=== PATIENT | female | born 1965 | race Hispanic/Latino ===

== ENCOUNTER 2022-08-01 17:03 | Inpatient (IN) | payer SELFPAY ==
[2022-08-01] MEDS ORDERED: Ondansetron PF 4 MG/2 ML Vial ONE (17:43)
[2022-08-01 17:56] LABS: #Eosinphils 0.2 thou/uL (0.0-0.7); #Lymphocytes 1.2 thou/uL (1.20-3.40); #Monocytes 0.5 thou/uL (0.11-0.59); #Neutrophils 5.8 thou/uL (1.40-6.50); %Basophils 0.3 % (0.0-1.0); %Eosinophils 2.1 % (0.0-10.0); %Monocytes 6.2 % (0.0-10.0); %Neutrophils 75.4 % (42.0-75.0); Hemoglobin 8.3 g/dL (12.0-16.0); Mean Corpuscular HGB CONC 29.9 g/dL (32.0-36.0); Mean Corpuscular Hemoglobin 20.3 pg (27.0-31.0); Mean Platelet Volume 10.9 fL (7.4-10.4); Platelet Count 268 thou/uL (130-400); Red Blood Cell (RBC) Count 4.06 mill/uL (4.20-5.40); White Blood Cell (WBC) Count 7.7 thou/uL (4.8-10.8)
[2022-08-01 17:58] LABS: Actual Bicarbonate (HCO3v) 27 mEq/L (22-28); Analyzer IN Cardio ER; Base Excess 2.3 mEq/L (-2.0 to +3.0); Calcium, Ionized (venous) 0.97 mmol/L (1.16-1.32); Chloride (VBG) 95 mmol/L (98-106); Hemoglobin (Hb) 9.2 g/dL (11.7-16.0); Potassium (VBG) 1.62 mmol/L (3.70-5.30); Sodium 132.8 mmol/L (133-146); pH (venous) 7.42 (7.32-7.43)
[2022-08-01 18:20] LABS: ALT (SGPT) 13 U/L (8-55); AST (SGOT) 12 U/L (5-34); Albumin 2.9 g/dL (3.5-5.0); Alkaline Phosphatase 98 U/L (40-110); Anion Gap 14 mmol/L (10-20); BUN (Urea Nitrogen) 5 mg/dL (9.8-20.1); Bilirubin, Total 0.4 mg/dL (0.2-1.2); Calc. Creatinine Clearance 0 mL/min (70-130); Calcium 7.9 mg/dL (7.8-10.44); Carbon Dioxide 27 mmol/L (22-29); Chloride 95 mmol/L (98-107); Estimated GFR 56; Globulin 3.3 g/dL (2.4-3.5); Lipase 48 U/L (8-78); Protein, Total 6.2 g/dL (6.0-8.3); Sodium 134 mmol/L (136-145)
[2022-08-01] MEDS ORDERED: Acetaminophen 500 MG TAB ONE (18:23)
[2022-08-01 18:24] LABS: Anisocytosis SLIGHT = 6-15 cells (100X) (0-5/hpf); Hypochromia SLIGHT = 6-15 cells (100X) (0-5/hpf); MDiff Complete? YES; Microcytosis SLIGHT = 6-15 cells (100X) (0-5/hpf); Ovalocytes SLIGHT = 2-5 cells (100X) (0-1/hpf); Platelet Morphology Comment Appears Adequate; Polychromasia MODERATE = 3-4 cells (100X) (0-2/hpf)
[2022-08-01 18:36] LABS: CKMB 2.5 ng/mL (0-6.6)
[2022-08-01] MEDS ORDERED: Aspirin Chewable 81 MG TAB ONE (18:37)
[2022-08-01 18:43] LABS: Glucose 555 mg/dL (70-105); Potassium 1.7 mmol/L (3.5-5.1)
[2022-08-01] MEDS ORDERED: Potassium Chloride 20 MEQ TAB ONE (19:36)
[2022-08-01] MEDS ORDERED: Potassium Chloride 20 MEQ/100 ML PREMIX BAG ONE (19:36)
[2022-08-01] MEDS ORDERED: Ondansetron ODT 4 MG TAB PO PRN (20:09)
[2022-08-01] MEDS ORDERED: Ondansetron PF 4 MG/2 ML Vial IVP PRN (20:09)
[2022-08-01 21:37] LABS: Troponin I 0.059 ng/mL (< 0.028)
[2022-08-01 21:59] VITALS: BMI 24.9
[2022-08-01] MEDS ORDERED: Lactated Ringer's 1,000 ML IV SCH (22:00)
[2022-08-01] MEDS ORDERED: Dextrose 50% Abboject 50 ML SYRINGE SLOW IVP PRN (23:12)
[2022-08-01] MEDS ORDERED: HumaLOG 300 UNITS/3 ML VIAL SC PRN (23:12)
[2022-08-01] MEDS ORDERED: Dextrose 5% in Water 1,000 ML IV PRN (23:12)
[2022-08-01] MEDS: Potassium Chloride 20 MEQ/100 ML PREMIX BAG IVPB SCH (23:19)
[2022-08-01] MEDS: Potassium Chloride 20 MEQ TAB PO SCH (23:19)
[2022-08-01 23:56] LABS: Anion Gap 14 mmol/L (10-20); BUN (Urea Nitrogen) 5 mg/dL (9.8-20.1); Calc. Creatinine Clearance 63 mL/min (70-130); Carbon Dioxide 26 mmol/L (22-29); Chloride 103 mmol/L (98-107); Sodium 141 mmol/L (136-145)
[2022-08-01 23:57] LABS: Calcium 7.7 mg/dL (7.8-10.44); Estimated GFR 69; Glucose 414 mg/dL (70-105)
[2022-08-02] MEDS: Potassium Chloride 20 MEQ TAB PO SCH (00:19)
[2022-08-02] MEDS: Potassium Chloride 20 MEQ/100 ML PREMIX BAG IVPB SCH (00:20)
[2022-08-02 00:45] LABS: Troponin I 0.066 ng/mL (< 0.028)
[2022-08-02] MEDS ORDERED: Potassium Chloride 20 MEQ TAB PO SCH ×4 (00:45→21:15)
[2022-08-02] MEDS ORDERED: Potassium Chloride 40 MEQ in Sodium Chloride 0.45% 1,000 ML IV SCH (00:45)
[2022-08-02] MEDS: Potassium Chloride 40 MEQ in Sodium Chloride 0.45% 1,000 ML IV SCH ×2 (01:21→09:17)
[2022-08-02 02:18] LABS: Magnesium 1.6 mg/dL (1.6-2.6)
[2022-08-02 02:26] LABS: Phosphorus Less than 1.0 mg/dL (2.3-4.7)
[2022-08-02] MEDS: Potassium Chloride 20 MEQ in Premix Bag 1 BAG IVPB SCH ×2 (02:39→06:12)
[2022-08-02] MEDS ORDERED: Magnesium 2 GM/50 ML(in water) 2 GM in Premix Bag 1 BAG IVPB SCH (03:00)
[2022-08-02 04:58] LABS: #Eosinphils 0.3 thou/uL (0.0-0.7); #Lymphocytes 2.2 thou/uL (1.20-3.40); #Monocytes 0.5 thou/uL (0.11-0.59); #Neutrophils 4.3 thou/uL (1.40-6.50); %Basophils 0.2 % (0.0-1.0); %Eosinophils 4.5 % (0.0-10.0); %Lymphocytes 29.7 % (21.0-51.0); %Neutrophils 58.5 % (42.0-75.0); Hemoglobin 7.5 g/dL (12.0-16.0); Mean Corpuscular HGB CONC 30.5 g/dL (32.0-36.0); Mean Corpuscular Hemoglobin 20.4 pg (27.0-31.0); Mean Platelet Volume 11.2 fL (7.4-10.4); Platelet Count 222 thou/uL (130-400); RBC Distribution Width 15.6 % (11.5-14.5); Red Blood Cell (RBC) Count 3.69 mill/uL (4.20-5.40); White Blood Cell (WBC) Count 7.4 thou/uL (4.8-10.8)
[2022-08-02 05:00] LABS: Hemoglobin A1c 13.3 % (4.0-6.0)
[2022-08-02 05:28] LABS: ALT (SGPT) 13 U/L (8-55); AST (SGOT) 16 U/L (5-34); Albumin 2.7 g/dL (3.5-5.0); Alkaline Phosphatase 91 U/L (40-110); Anion Gap 13 mmol/L (10-20); BUN (Urea Nitrogen) Less than 4 mg/dL (9.8-20.1); Bilirubin, Total 0.3 mg/dL (0.2-1.2); Calc. Creatinine Clearance 76 mL/min (70-130); Calcium 7.5 mg/dL (7.8-10.44); Carbon Dioxide 24 mmol/L (22-29); Cardiac Risk 6.6 (Less than 4.5); Chloride 107 mmol/L (98-107); Cholesterol 146 mg/dl (< 200 Desired); Estimated GFR 87; Globulin 3.1 g/dL (2.4-3.5); Glucose 217 mg/dL (70-105); HDL Cholesterol 22 mg/dL (>60 Neg Risk); LDL Cholesterol, Calculated 60 mg/dL; Protein, Total 5.8 g/dL (6.0-8.3); Sodium 141 mmol/L (136-145); Triglycerides 319 mg/dL (Less than 150)
[2022-08-02 05:30] LABS: Potassium 2.7 mmol/L (3.5-5.1)
[2022-08-02] MEDS: Enoxaparin Sodium 40 MG/0.4 ML SYRINGE SC SCH (08:42)
[2022-08-02] MEDS: Ferrous Sulfate 325 MG TAB PO SCH (08:42)
[2022-08-02] MEDS: Multivitamin W/ Minerals 1 TAB PO SCH (08:43)
[2022-08-02] MEDS: Potassium Phosphate 15 MMOL in Sodium Chloride 0.9% 250 ML 250 ML IVPB SCH ×2 (08:43→10:32)
[2022-08-02] MEDS: metFORMIN 500 MG TAB PO SCH ×2 (08:43→17:33)
[2022-08-02] MEDS ORDERED: PHOS-NAK 1 PKT PACK PO SCH (09:00)
[2022-08-02 09:35] LABS: Anion Gap 12 mmol/L (10-20); BUN (Urea Nitrogen) 4 mg/dL (9.8-20.1); Calc. Creatinine Clearance 71 mL/min (70-130); Calcium 7.3 mg/dL (7.8-10.44); Carbon Dioxide 23 mmol/L (22-29); Chloride 107 mmol/L (98-107); Estimated GFR 81; Glucose 361 mg/dL (70-105); Sodium 139 mmol/L (136-145)
[2022-08-02 09:36] LABS: Iron 14 ug/dL (50-170); Iron Binding Capacity, Total 301 mcg/dL (265-497); Transferrin, Serum 241 mg/dL (180-382)
[2022-08-02] MEDS ORDERED: Potassium Chloride 20 MEQ in Premix Bag 1 BAG IVPB SCH (09:45)
[2022-08-02] MEDS ORDERED: Polyethylene Glycol 3350 17 GM Packet PO PRN (10:06)
[2022-08-02] MEDS: Fluticasone Propionate Nasal Spray 16 gm Bottle NASAL SCH (10:38)
[2022-08-02] MEDS: HumaLOG 300 UNITS/3 ML VIAL SC PRN ×2 (12:18→17:34)
[2022-08-02 18:39] LABS: Anion Gap 14 mmol/L (10-20); BUN (Urea Nitrogen) 6 mg/dL (9.8-20.1); Calc. Creatinine Clearance 52 mL/min (70-130); Calcium 7.7 mg/dL (7.8-10.44); Carbon Dioxide 23 mmol/L (22-29); Chloride 107 mmol/L (98-107); Estimated GFR 55; Glucose 540 mg/dL (70-105); Magnesium 1.8 mg/dL (1.6-2.6); Potassium 3.5 mmol/L (3.5-5.1); Sodium 140 mmol/L (136-145)
[2022-08-02 19:02] LABS: Phosphorus 2.2 mg/dL (2.3-4.7)
[2022-08-02] MEDS ORDERED: NPH, Human Insulin Isophane 300 UNIT/3 ML VIAL SC SCH (21:00)
[2022-08-03 04:29] LABS: Mean Corpuscular HGB CONC 29.2 g/dL (32.0-36.0)
[2022-08-03 04:30] LABS: #Eosinphils 0.6 thou/uL (0.0-0.7); #Lymphocytes 2.3 thou/uL (1.20-3.40); #Monocytes 0.6 thou/uL (0.11-0.59); #Neutrophils 4.5 thou/uL (1.40-6.50); %Basophils 0.6 % (0.0-1.0); %Lymphocytes 28.7 % (21.0-51.0); %Monocytes 7.8 % (0.0-10.0); %Neutrophils 55.9 % (42.0-75.0); Hemoglobin 7.6 g/dL (12.0-16.0); Mean Corpuscular Hemoglobin 19.9 pg (27.0-31.0); Mean Corpuscular Volume 68.1 fl (78.0-98.0); Mean Platelet Volume 10.9 fL (7.4-10.4); Platelet Count 237 thou/uL (130-400); RBC Distribution Width 16.3 % (11.5-14.5); Red Blood Cell (RBC) Count 3.81 mill/uL (4.20-5.40); White Blood Cell (WBC) Count 8.1 thou/uL (4.8-10.8)
[2022-08-03 04:48] LABS: Phosphorus 2.1 mg/dL (2.3-4.7)
[2022-08-03 05:07] LABS: ALT (SGPT) 14 U/L (8-55); AST (SGOT) 14 U/L (5-34); Albumin 2.8 g/dL (3.5-5.0); Alkaline Phosphatase 102 U/L (40-110); Anion Gap 14 mmol/L (10-20); BUN (Urea Nitrogen) 6 mg/dL (9.8-20.1); Bilirubin, Total 0.3 mg/dL (0.2-1.2); Calc. Creatinine Clearance 62 mL/min (70-130); Carbon Dioxide 24 mmol/L (22-29); Chloride 106 mmol/L (98-107); Estimated GFR 68; Globulin 3.1 g/dL (2.4-3.5); Glucose 340 mg/dL (70-105); Magnesium 1.8 mg/dL (1.6-2.6); Potassium 3.7 mmol/L (3.5-5.1); Protein, Total 5.9 g/dL (6.0-8.3); Sodium 140 mmol/L (136-145)
[2022-08-03] MEDS ORDERED: Potassium Chloride 20 MEQ TAB PO SCH (08:00)
[2022-08-03] MEDS ORDERED: HumaLOG 300 UNITS/3 ML VIAL SC PRN (08:36)
[2022-08-03] MEDS ORDERED: metFORMIN 500 MG TAB PO SCH (08:45)
[2022-08-03] MEDS: metFORMIN 500 MG TAB PO SCH ×2 (08:53→16:37)
[2022-08-03] MEDS: Enoxaparin Sodium 40 MG/0.4 ML SYRINGE SC SCH (09:00)
[2022-08-03] MEDS: Fluticasone Propionate Nasal Spray 16 gm Bottle NASAL SCH (09:00)
[2022-08-03] MEDS: Multivitamin W/ Minerals 1 TAB PO SCH (09:00)
[2022-08-03] MEDS ORDERED: Potassium Phosphate 9 MMOL in Sodium Chloride 0.9% 100 ML IVPB SCH (10:00)
[2022-08-03] MEDS ORDERED: Gabapentin 100 MG CAP PO SCH (10:45)
[2022-08-03] MEDS: HumaLOG 300 UNITS/3 ML VIAL SC PRN ×2 (11:35→18:02)
[2022-08-03] MEDS ORDERED: Fluticasone Propionate Nasal Spray 16 gm Bottle NASAL PRN (17:44)
[2022-08-03] MEDS: Acetaminophen 500 MG TAB PO PRN (20:26)
[2022-08-04 04:21] LABS: #Basophils 0.1 thou/uL (0.0-0.2); #Eosinphils 0.3 thou/uL (0.0-0.7); #Monocytes 0.5 thou/uL (0.11-0.59); #Neutrophils 3.5 thou/uL (1.40-6.50); %Eosinophils 5.4 % (0.0-10.0); %Lymphocytes 30.9 % (21.0-51.0); %Neutrophils 54.8 % (42.0-75.0); Hemoglobin 7.2 g/dL (12.0-16.0); Mean Corpuscular HGB CONC 30.1 g/dL (32.0-36.0); Mean Corpuscular Hemoglobin 20.6 pg (27.0-31.0); Mean Corpuscular Volume 68.5 fl (78.0-98.0); Mean Platelet Volume 11.1 fL (7.4-10.4); Platelet Count 202 thou/uL (130-400); RBC Distribution Width 16.4 % (11.5-14.5); Red Blood Cell (RBC) Count 3.48 mill/uL (4.20-5.40); White Blood Cell (WBC) Count 6.4 thou/uL (4.8-10.8)
[2022-08-04 04:36] LABS: Anion Gap 9 mmol/L (10-20); BUN (Urea Nitrogen) 7 mg/dL (9.8-20.1); Calc. Creatinine Clearance 60 mL/min (70-130); Calcium 8.1 mg/dL (7.8-10.44); Carbon Dioxide 27 mmol/L (22-29); Chloride 107 mmol/L (98-107); Estimated GFR 66; Glucose 297 mg/dL (70-105); Magnesium 1.7 mg/dL (1.6-2.6); Phosphorus 3.1 mg/dL (2.3-4.7); Potassium 3.5 mmol/L (3.5-5.1); Sodium 139 mmol/L (136-145)
[2022-08-04] MEDS ORDERED: Iron, Sodium Ferric Gluconate 250 MG in Sodium Chloride 0.9% 250 ML 250 ML IVPB SCH (08:07)
[2022-08-04] MEDS ORDERED: Gabapentin 100 MG CAP PO SCH (09:00)
[2022-08-04] MEDS: Multivitamin W/ Minerals 1 TAB PO SCH (09:09)
[2022-08-04] MEDS: Ferrous Sulfate 325 MG TAB PO SCH (09:09)
[2022-08-04] MEDS: Enoxaparin Sodium 40 MG/0.4 ML SYRINGE SC SCH (09:09)
[2022-08-04] MEDS: metFORMIN 500 MG TAB PO SCH ×2 (09:09→16:27)
[2022-08-04] MEDS: Acetaminophen 500 MG TAB PO PRN (11:29)
[2022-08-04] MEDS: HumaLOG 300 UNITS/3 ML VIAL SC PRN ×2 (11:30→16:27)
[2022-08-04 16:15] VITALS: BP 82/58; TEMP 97.8
[2022-08-04] MEDS ORDERED: FLU VACC QS2022-23(6MOS UP)/PF 60 MCG/0.5 ML SYRINGE IM ONE (23:30)
== END 2022-08-04 17:25 | disposition home or self-care (01) | DRG 637 ==
LOC: ERS 17:03 → 2NO 19:04
PROVIDERS: ADMIT Student in an Organized Health Care Education/Training Program; ATTEND Student in an Organized Health Care Education/Training Program
DX: E11.65 Type 2 diabetes mellitus with hyperglycemia (principal); E43 Unspecified severe protein-calorie malnutrition; E87.6 Hypokalemia; K21.9 Gastro-esophageal reflux disease without esophagitis; E11.40 Type 2 diabetes mellitus with diabetic neuropathy, unspecified; E78.5 Hyperlipidemia, unspecified; I10 Essential (primary) hypertension; F17.210 Nicotine dependence, cigarettes, uncomplicated; E87.5 Hyperkalemia; J30.2 Other seasonal allergic rhinitis; E83.42 Hypomagnesemia; E83.39 Other disorders of phosphorus metabolism; F32.A Depression, unspecified; D50.9 Iron deficiency anemia, unspecified; R01.1 Cardiac murmur, unspecified; I35.0 Nonrheumatic aortic (valve) stenosis; Z98.51 Tubal ligation status; Z68.24 Body mass index [BMI] 24.0-24.9, adult; Z79.4 Long term (current) use of insulin; Z91.190 Patient's noncompliance with other medical treatment and regimen due to financial hardship; Z79.899 Other long term (current) drug therapy
CPT/HCPCS: 36415; 36416; 71045; 80048; 80053; 80061; 82010; 82553; 82728; 82805; 83036; 83540; 83550; 83690; 83735; 84100; 84443; 84466; 84484; 85025; 93005; 93306; 96361; 96365; J1650; J1815; J2405; J2916; J3475; J3480; J3490; J7050; J7120; U0003; U0005

== ENCOUNTER 2025-06-28 05:52 | Inpatient (IN) | payer SELFPAY ==
[2025-06-28 06:54] LABS: #Basophils 0.03 10x3/uL (0.0-0.2); #Eosinophils Less than 0.03 10x3/uL (0.0-0.7); #Monocytes 0.72 10x3/uL (0.11-0.59); #Neutrophils 16.23 10x3/uL (1.40-6.50); %Basophils 0.2 % (0.0-1.0); %Eosinophils 0.1 % (0.0-10.0); %Lymphocytes 7.6 % (21.0-51.0); %Monocytes 3.9 % (0.0-10.0); %Neutrophils 87.1 % (42.0-75.0); Hematocrit 40.8 % (36.0-47.0); Hemoglobin 12.6 g/dL (12.0-16.0); Mean Corpuscular Hemoglobin 27.7 pg (27.0-31.0); Mean Corpuscular Volume 89.7 fL (78.0-98.0); Platelet Count 201 10x3/uL (130-400); Red Blood Cell (RBC) Count 4.55 mill/uL (4.20-5.40); White Blood Cell (WBC) Count 18.61 10x3/uL (4.8-10.8)
[2025-06-28 06:59] LABS: Base Excess -14.3 mEq/L (-2.0 to +3.0); Calcium, Ionized (venous) 1.07 mmol/L (1.16-1.32); Chloride (VBG) 92 mmol/L (98-106); Hematocrit-VBG 43 % (36.0-47.0); Hemoglobin (Hb) 14.5 g/dL (11.7-16.0); Potassium (VBG) 4.79 mmol/L (3.70-5.30); Sodium 128 mmol/L (133-146)
[2025-06-28] MEDS ORDERED: cefTRIAXone (ROCEPHIN) 2 GM VIAL ONE (07:14)
[2025-06-28] MEDS ORDERED: Azithromycin 500 MG VIAL ONE (07:14)
[2025-06-28] MEDS ORDERED: Magnesium 2 GM/50 ML BAG (IN WATER) ONE (07:14)
[2025-06-28 07:37] LABS: ALT (SGPT) 71 U/L (Less than 34); AST (SGOT) 134 U/L (11-34); Albumin 3.0 g/dL (3.1-4.5); Alkaline Phosphatase 104 U/L (40-110); Anion Gap 27 mmol/L (10-20); BUN (Urea Nitrogen) 76 mg/dL (9.8-20.1); Bilirubin, Total 0.8 mg/dL (0.3-1.2); Calc. Creatinine Clearance 0 mL/min (70-130); Calcium 8.6 mg/dL (7.8-10.44); Carbon Dioxide 11 mmol/L (23-31); Chloride 94 mmol/L (98-107); Globulin 4.1 g/dL (2.4-3.5); Glucose 751 mg/dL (80-115); Lipase 53 U/L (8-78); Potassium 5.0 mmol/L (3.5-5.1); Sodium 127 mmol/L (136-145)
[2025-06-28] MEDS ORDERED: Furosemide 40 MG (4 mL) VIAL ONE (07:53)
[2025-06-28] MEDS ORDERED: INSULIN REGULAR IN 0.9 % NACL 100 ML ONE (07:54)
[2025-06-28] MEDS ORDERED: NOREPINEPHRINE 8 MG/250 ML-D5W 250 ML ONE (08:04)
[2025-06-28 08:08] LABS: INR-International Normal Ratio 1.3; PTT 32.3 sec (22.9-36.1); Prothrombin Time 15.9 sec (12.0-14.7)
[2025-06-28] MEDS ORDERED: Etomidate 40 MG (20 mL) VIAL ONE (08:11)
[2025-06-28] MEDS ORDERED: Rocuronium Bromide 10 MG/ML (10ML VIAL) ONE (08:11)
[2025-06-28 09:37] LABS: Osmolality, Serum 318 mOsm/kg (280-301)
[2025-06-28] MEDS ORDERED: Aspirin 81 mg Enteric Coated Tablet ONE (10:07)
[2025-06-28] MEDS ORDERED: Enoxaparin 80 MG (0.8 mL) SYRINGE ONE (10:08)
[2025-06-28] MEDS ORDERED: Aspirin Chewable 81 MG TAB ONE ×2 (10:10→10:24)
[2025-06-28] MEDS ORDERED: Ondansetron PF 4 MG/2 ML Vial IVP PRN (10:42)
[2025-06-28] MEDS ORDERED: Electrolyte Replacement Protocol 1 EACH IVPB SCH (10:46)
[2025-06-28] MEDS ORDERED: Dextrose 50% Abboject 50 ML SYRINGE SLOW IVP PRN (10:46)
[2025-06-28] MEDS ORDERED: NS 0.9% w/ 20 MEQ KCL 1,000 ML IV PRN (10:46)
[2025-06-28 10:59] LABS: Analyzer IN Cardio ER; Base Excess (BEa) -17.4 mEq/L (-2.0 to +3.0); CO2 Tension 35.6 mmHg (35.0-45.0); Calcium, Ionized (arterial) 1.12 mmol/L (1.12-1.30); Hematocrit-ABG 42 % (36.0-47.0); Hemoglobin (Hb) 14.4 g/dL (12.0-16.0); O2 Tension (PaO2), arterial 214.7 mmHg (> 80.0); Potassium - ABG Lab 4.92 mmol/L (3.70-5.30)
[2025-06-28] MEDS ORDERED: Sodium Bicarb 50 MEQ/50 ML Abboject 8.4% SYRINGE ONE (11:08)
[2025-06-28 11:50] LABS: Anion Gap 24 mmol/L (10-20); BUN (Urea Nitrogen) 72 mg/dL (9.8-20.1); Calc. Creatinine Clearance 0 mL/min (70-130); Calcium 8.0 mg/dL (7.8-10.44); Carbon Dioxide 11 mmol/L (23-31); Chloride 99 mmol/L (98-107); Glucose 723 mg/dL (80-115); Potassium 5.0 mmol/L (3.5-5.1); Sodium 129 mmol/L (136-145)
[2025-06-28] MEDS ORDERED: DISCONTINUE PREVIOUS NARCOTIC PAIN MEDICATIONS AND BENZODIAZEPINES FS SCH (12:15)
[2025-06-28] MEDS ORDERED: Propofol BOLUS 1,000 MG/100 ML VIAL IV PRN (12:15)
[2025-06-28] MEDS ORDERED: Fentanyl BOLUS 100 ML IVPB PRN (12:15)
[2025-06-28 12:36] LABS: Actual Bicarbonate (HCO3a) 15.6 mEq/L (22-28); Base Excess (BEa) -14.2 mEq/L (-2.0 to +3.0); CO2 Tension 52.2 mmHg (35.0-45.0); Calcium, Ionized (arterial) 1.03 mmol/L (1.12-1.30); Hematocrit-ABG 39 % (36.0-47.0); Hemoglobin (Hb) 13.2 g/dL (12.0-16.0); O2 Tension (PaO2), arterial 67.3 mmHg (> 80.0); Potassium - ABG Lab 4.37 mmol/L (3.70-5.30)
[2025-06-28 12:40] LABS: pH, Arterial 7.093 (7.35-7.45)
[2025-06-28 12:41] LABS: ALV-art Gradient 152.650 mmHg (0-20); Puncture Site Right Brachial art
[2025-06-28] MEDS: INSULIN REGULAR IN 0.9 % NACL 100 ML IVPB SCH (12:53)
[2025-06-28] MEDS ORDERED: NOREPINEPHRINE 8 MG/250 ML-D5W 250 ML IVPB SCH (13:00)
[2025-06-28 13:37] LABS: Glucose 595 mg/dL (80-115)
[2025-06-28 14:35] LABS: Glucose 541 mg/dL (80-115)
[2025-06-28 16:29] LABS: Anion Gap 15 mmol/L (10-20); BUN (Urea Nitrogen) 65 mg/dL (9.8-20.1); Calc. Creatinine Clearance 35 mL/min (70-130); Calcium 7.2 mg/dL (7.8-10.44); Carbon Dioxide 17 mmol/L (23-31); Chloride 107 mmol/L (98-107); Glucose 507 mg/dL (80-115); Potassium 4.3 mmol/L (3.5-5.1); Sodium 135 mmol/L (136-145)
[2025-06-28] MEDS: NS 0.9% w/ 20 MEQ KCL 1,000 ML IV PRN (16:33)
[2025-06-28] MEDS: Mupirocin 1 GM TUBE TP SCH (20:19)
[2025-06-28] MEDS: Heparin 5,000 UNITS/ML VIAL SC SCH (20:19)
[2025-06-28] MEDS: Famotidine/PF 20 mg/2ml Vial SLOW IVP SCH (20:20)
[2025-06-28 20:54] LABS: Anion Gap 17 mmol/L (10-20); BUN (Urea Nitrogen) 63 mg/dL (9.8-20.1); Calc. Creatinine Clearance 31 mL/min (70-130); Calcium 7.0 mg/dL (7.8-10.44); Carbon Dioxide 16 mmol/L (23-31); Chloride 110 mmol/L (98-107); Glucose 352 mg/dL (80-115); Potassium 5.1 mmol/L (3.5-5.1); Sodium 138 mmol/L (136-145)
[2025-06-29 05:23] LABS: Anion Gap 15 mmol/L (10-20); BUN (Urea Nitrogen) 63 mg/dL (9.8-20.1); Calc. Creatinine Clearance 32 mL/min (70-130); Carbon Dioxide 17 mmol/L (23-31); Chloride 112 mmol/L (98-107); Potassium 4.6 mmol/L (3.5-5.1); Sodium 139 mmol/L (136-145)
[2025-06-29 05:24] LABS: ALT (SGPT) 416 U/L (Less than 34); AST (SGOT) 655 U/L (11-34); Albumin 1.8 g/dL (3.1-4.5); Alkaline Phosphatase 68 U/L (40-110); Bilirubin, Total 0.3 mg/dL (0.3-1.2); Calcium 6.9 mg/dL (7.8-10.44); Globulin 3.2 g/dL (2.4-3.5); Glucose 223 mg/dL (80-115); Magnesium 2.0 mg/dL (1.6-2.6)
[2025-06-29 05:30] VITALS: BMI 27.0
[2025-06-29] MEDS: D5 1/2 NS w/20 mEq KCL 1,000 ML IV PRN (05:44)
[2025-06-29 07:32] LABS: Base Excess (BEa) -7.7 mEq/L (-2.0 to +3.0); Calcium, Ionized (arterial) 1.03 mmol/L (1.12-1.30); Hematocrit-ABG 51 % (36.0-47.0); Hemoglobin (Hb) 17.3 g/dL (12.0-16.0); O2 Tension (PaO2), arterial 147.6 mmHg (> 80.0); Potassium - ABG Lab 4.60 mmol/L (3.70-5.30); pH, Arterial 7.398 (7.35-7.45)
[2025-06-29 07:34] LABS: CO2 Tension 24.5 mmHg (35.0-45.0)
[2025-06-29 07:35] LABS: ALV-art Gradient 106.975 mmHg (0-20); Actual Bicarbonate (HCO3a) 14.8 mEq/L (22-28); Puncture Site Left Radial artery
[2025-06-29] MEDS ORDERED: [UNRECOGNIZED DRUG - OTHER] IVPB SCH (08:00)
[2025-06-29] MEDS ORDERED: ADMIXTURE FEE CHEMO IVPB SCH (08:00)
[2025-06-29] MEDS ORDERED: AZITHROMYCIN IVPB SCH (08:00)
[2025-06-29] MEDS ORDERED: Glucagon 1 MG/ML KIT IM PRN (08:24)
[2025-06-29 08:28] LABS: #Basophils Less than 0.03 10x3/uL (0.0-0.2); #Eosinophils Less than 0.03 10x3/uL (0.0-0.7); #Monocytes 0.63 10x3/uL (0.11-0.59); #Neutrophils 10.57 10x3/uL (1.40-6.50); %Basophils 0.1 % (0.0-1.0); %Eosinophils 0.0 % (0.0-10.0); %Lymphocytes 10.1 % (21.0-51.0); %Monocytes 5.0 % (0.0-10.0); %Neutrophils 84.1 % (42.0-75.0); Hematocrit 33.7 % (36.0-47.0); Hemoglobin 10.9 g/dL (12.0-16.0); Mean Corpuscular Hemoglobin 28.5 pg (27.0-31.0); Mean Corpuscular Volume 88.2 fL (78.0-98.0); Platelet Count 154 10x3/uL (130-400); Red Blood Cell (RBC) Count 3.82 mill/uL (4.20-5.40); White Blood Cell (WBC) Count 12.57 10x3/uL (4.8-10.8)
[2025-06-29] MEDS: cefTRIAXone\\ROCEPHIN 1 GM in Sodium Chloride 0.9% 100 ML IVPB SCH (08:50)
[2025-06-29] MEDS: Azithromycin 500 MG in Sodium Chloride 0.9% 250 ML 250 ML IVPB SCH (08:55)
[2025-06-29] MEDS: Magnesium 2 GM/50 ML(in water) 2 GM in Premix 1 BAG IVPB SCH ×2 (08:55→20:20)
[2025-06-29 09:16] LABS: Glucose, Urine (Dipstick) 50 mg/dL (Negative); Leukocyte 500 Leu/uL (Negative); Protein, Urine (Dipstick) 70 mg/dL (Neg-Trace); RBC/HPF 0-3 HPF (0-3); Specific Gravity, Urine 1.021 (1.002-1.036); WBC/HPF Greater than 50 HPF (0-3)
[2025-06-29 09:18] LABS: Bacteria/HPF 1+ HPF (None Seen)
[2025-06-29] MEDS: Insulin Glargine 30 UNITS/0.3 ML VIAL SC SCH (11:58)
[2025-06-29] MEDS: Acetaminophen 325 MG TAB PO PRN (11:58)
[2025-06-29 13:51] LABS: Actual Bicarbonate (HCO3v) 13.5 mEq/L (22-28)
[2025-06-29 13:54] LABS: Actual Bicarbonate (HCO3a) 11.1 mEq/L (22-28); pH, Arterial 7.112 (7.35-7.45)
[2025-06-29 13:55] VITALS: BMI 27.0
[2025-06-29] MEDS: Furosemide 40 MG (4 mL) VIAL SLOW IVP SCH (14:49)
[2025-06-29] MEDS: Furosemide 40 MG (4 mL) VIAL ONE (14:50)
[2025-06-29 21:53] LABS: ALT (SGPT) 1533 U/L (Less than 34); AST (SGOT) 2869 U/L (11-34); Albumin 1.9 g/dL (3.1-4.5); Alkaline Phosphatase 77 U/L (40-110); Anion Gap 21 mmol/L (10-20); BUN (Urea Nitrogen) 69 mg/dL (9.8-20.1); Bilirubin, Total 0.8 mg/dL (0.3-1.2); Calc. Creatinine Clearance 26 mL/min (70-130); Calcium 7.4 mg/dL (7.8-10.44); Carbon Dioxide 11 mmol/L (23-31); Chloride 108 mmol/L (98-107); Globulin 3.3 g/dL (2.4-3.5); Glucose 274 mg/dL (80-115); Magnesium 7.0 mg/dL (1.6-2.6); Potassium 6.1 mmol/L (3.5-5.1); Sodium 134 mmol/L (136-145)
[2025-06-29 22:35] LABS: ALT (SGPT) 1544 U/L (Less than 34); AST (SGOT) 2890 U/L (11-34); Albumin 1.9 g/dL (3.1-4.5); Alkaline Phosphatase 79 U/L (40-110); Anion Gap 22 mmol/L (10-20); BUN (Urea Nitrogen) 70 mg/dL (9.8-20.1); Bilirubin, Total 0.8 mg/dL (0.3-1.2); Calc. Creatinine Clearance 26 mL/min (70-130); Calcium 7.5 mg/dL (7.8-10.44); Carbon Dioxide 10 mmol/L (23-31); Chloride 109 mmol/L (98-107); Globulin 3.3 g/dL (2.4-3.5); Glucose 264 mg/dL (80-115); Magnesium 3.3 mg/dL (1.6-2.6); Potassium 6.2 mmol/L (3.5-5.1); Sodium 135 mmol/L (136-145)
[2025-06-29] MEDS: LOKELMA 10 GM PACKET PO SCH (22:45)
[2025-06-29] MEDS: Sodium Bicarb 50 MEQ/50 ML Abboject 8.4% SYRINGE IVP SCH ×2 (22:48→23:07)
[2025-06-30] MEDS: Norepinephrine 8 MG/0.9% NS 250 ML IVPB SCH (00:06)
[2025-06-30] MEDS: Vasopressin In 0.9 % NaCl 100 ML IV SCH (01:18)
[2025-06-30 01:51] LABS: Anion Gap 23 mmol/L (10-20); BUN (Urea Nitrogen) 68 mg/dL (9.8-20.1); Calc. Creatinine Clearance 25 mL/min (70-130); Calcium 11.1 mg/dL (7.8-10.44); Carbon Dioxide 9 mmol/L (23-31); Chloride 109 mmol/L (98-107); Glucose 231 mg/dL (80-115); Potassium 5.7 mmol/L (3.5-5.1); Sodium 135 mmol/L (136-145)
[2025-06-30] MEDS: Sodium Bicarb 50 MEQ/50 ML Abboject 8.4% SYRINGE IVP SCH ×4 (01:59→13:39)
[2025-06-30] MEDS: Albumin 25% 25 GM (100 mL) BOT IVPB SCH ×2 (01:59→06:02)
[2025-06-30] MEDS: LOKELMA 10 GM PACKET PO SCH (02:00)
[2025-06-30 03:46] LABS: Hematocrit 34.2 % (36.0-47.0); Hemoglobin 10.6 g/dL (12.0-16.0); Mean Corpuscular Hemoglobin 28.6 pg (27.0-31.0); Mean Corpuscular Volume 92.2 fL (78.0-98.0); Platelet Count 218 10x3/uL (130-400); Red Blood Cell (RBC) Count 3.71 mill/uL (4.20-5.40); White Blood Cell (WBC) Count 23.39 10x3/uL (4.8-10.8)
[2025-06-30 04:05] LABS: ALT (SGPT) 2101 U/L (Less than 34); AST (SGOT) Greater than 4001 U/L (11-34); Albumin 2.4 g/dL (3.1-4.5); Alkaline Phosphatase 71 U/L (40-110); Anion Gap 25 mmol/L (10-20); BUN (Urea Nitrogen) 72 mg/dL (9.8-20.1); Bilirubin, Total 1.4 mg/dL (0.3-1.2); Calc. Creatinine Clearance 24 mL/min (70-130); Calcium 8.1 mg/dL (7.8-10.44); Carbon Dioxide 12 mmol/L (23-31); Chloride 107 mmol/L (98-107); Globulin 2.8 g/dL (2.4-3.5); Glucose 205 mg/dL (80-115); Potassium 5.5 mmol/L (3.5-5.1); Sodium 138 mmol/L (136-145)
[2025-06-30 04:18] LABS: Nucleated RBC (Manual Ct) 3 % (0); Platelet Adequacy Comment Platelets Normal; Polychromasia SLIGHT = 2-3 cells HPF (0-2)
[2025-06-30 07:17] LABS: Anion Gap 29 mmol/L (10-20); BUN (Urea Nitrogen) 71 mg/dL (9.8-20.1); Calc. Creatinine Clearance 24 mL/min (70-130); Calcium 7.7 mg/dL (7.8-10.44); Carbon Dioxide 13 mmol/L (23-31); Chloride 103 mmol/L (98-107); Glucose 220 mg/dL (80-115); Potassium 5.5 mmol/L (3.5-5.1); Sodium 139 mmol/L (136-145)
[2025-06-30 08:56] LABS: Hep B Core Total Index 0.07 S/CO (0-0.79); Hep C Index 0.06 S/CO (0-0.79)
[2025-06-30 09:15] LABS: HBSAB Concentration Less than 8.00 mIU/mL
[2025-06-30 09:16] LABS: Hep B Core Total Ab NONREACTIVE (NonReactive); Hep C IgG Ab NONREACTIVE S/CO (NonReactive)
[2025-06-30 09:46] LABS: Hep B Surf Ag NONREACTIVE S/CO (NonReactive)
[2025-06-30 10:17] VITALS: BP 93/55
[2025-06-30] MEDS: Calcium Chloride 1 GM/10 ML Abboject SYRINGE IVP SCH (10:41)
[2025-06-30 10:51] LABS: Base Excess (BEa) -9.3 mEq/L (-2.0 to +3.0); Calcium, Ionized (arterial) 1.22 mmol/L (1.12-1.30); Hematocrit-ABG 36 % (36.0-47.0); Hemoglobin (Hb) 12.1 g/dL (12.0-16.0); O2 Tension (PaO2), arterial 406.6 mmHg (> 80.0); Potassium - ABG Lab 5.12 mmol/L (3.70-5.30); pH, Arterial 7.386 (7.35-7.45)
[2025-06-30 11:53] VITALS: TEMP 101
[2025-06-30] MEDS: Hydrocortisone Sod Succ/PF 100 mg/2 ml Vial IVP SCH (12:32)
[2025-06-30] MEDS: Sodium Bicarb 50 MEQ/50 ML Abboject 8.4% SYRINGE ONE (12:37)
[2025-06-30] MEDS: Phenylephrine 40 MG/NS 250 ML 250 ML IVPB SCH (13:13)
[2025-06-30] MEDS: Glycopyrrolate 0.4 MG/ 2 ML VIAL SLOW IVP PRN (15:22)
[2025-06-30] MEDS ORDERED: Hydrocortisone Sod Succ/PF 100 mg/2 ml Vial IVP SCH (18:30)
[2025-07-03 12:51] LABS: Actual Bicarbonate (HCO3a) 13.9 mEq/L (22-28); CO2 Tension 23.7 mmHg (35.0-45.0)
== END 2025-06-30 15:54 | disposition expired | DRG 871 ==
LOC: ERS 05:52 → CCU 10:44
PROVIDERS: ADMIT Internal Medicine; ATTEND Hospitalist
PROC: 02H633Z Insertion of Infusion Device into Right Atrium, Percutaneous Approach (ICD-10-PCS; principal; 2025-06-28)
PROC: 4A13XR1 Monitoring of Arterial Saturation, Peripheral, External Approach (ICD-10-PCS; 2025-06-28)
PROC: 0BH17EZ Insertion of Endotracheal Airway into Trachea, Via Natural or Artificial Opening (ICD-10-PCS; 2025-06-28)
PROC: 5A1945Z Respiratory Ventilation, 24-96 Consecutive Hours (ICD-10-PCS; 2025-06-28)
PROC: 3E033XZ Introduction of Vasopressor into Peripheral Vein, Percutaneous Approach (ICD-10-PCS; 2025-06-28)
PROC: 3E03329 Introduction of Other Anti-infective into Peripheral Vein, Percutaneous Approach (ICD-10-PCS; 2025-06-29)
PROC: 03HY32Z Insertion of Monitoring Device into Upper Artery, Percutaneous Approach (ICD-10-PCS; 2025-06-30)
PROC: 4A133B1 Monitoring of Arterial Pressure, Peripheral, Percutaneous Approach (ICD-10-PCS; 2025-06-30)
PROC: 4A133J1 Monitoring of Arterial Pulse, Peripheral, Percutaneous Approach (ICD-10-PCS; 2025-06-30)
DX: A41.9 Sepsis, unspecified organism (principal); E11.00 Type 2 diabetes mellitus with hyperosmolarity without nonketotic hyperglycemic-hyperosmolar coma (NKHHC); I50.33 Acute on chronic diastolic (congestive) heart failure; J18.9 Pneumonia, unspecified organism; J96.01 Acute respiratory failure with hypoxia; R65.21 Severe sepsis with septic shock; I21.4 Non-ST elevation (NSTEMI) myocardial infarction; N18.6 End stage renal disease; E87.20 Acidosis, unspecified; E87.1 Hypo-osmolality and hyponatremia; I42.9 Cardiomyopathy, unspecified; N17.9 Acute kidney failure, unspecified; Z66 Do not resuscitate; Z51.5 Encounter for palliative care; E11.9 Type 2 diabetes mellitus without complications; J44.9 Chronic obstructive pulmonary disease, unspecified; Z98.51 Tubal ligation status; Z98.890 Other specified postprocedural states; Z72.0 Tobacco use; I95.9 Hypotension, unspecified; I08.2 Rheumatic disorders of both aortic and tricuspid valves; E87.5 Hyperkalemia
CPT/HCPCS: 31500; 36415; 36416; 36600; 70450; 71045; 71250; 80053; 81001; 82010; 82805; 83036; 83605; 83690; 83735; 83880; 83930; 84443; 84484; 85025; 85379; 85610; 85730; 86141; 86704; 86706; 86803; 87040; 87340; 87426; 93005; 93306; 94003; 94640; 94760; 96372; 96374; 96375; A4217; J0282; J0456; J0696; J1250; J1644; J1650; J1720; J1815; J1940; J2060; J2704; J2919; J3475; J3480; J7030; J7042; J7050; J7070; J7120; P9047